=== PATIENT | female | born 1985 | race Caucasian/White ===

== ENCOUNTER 2023-05-16 09:07 | Emergency (ER) | payer MEDICAID, SELFPAY ==
[2023-05-16 09:16] VITALS: BP 139/87; PULSE 107; RESP 16; TEMP 36.5; O2SAT 96; BMI 25.8
--- NOTE | 2023-05-16 10:24 | ED.SKABFB1 ---
HPI - Skin/Abscess/Foreign Bdy General Chief complaint: Skin/Abscess/Foreign Body Stated complaint: LOCALIZED REDNESS/ BOIL Time Seen by Provider: 05/16/23 09:20 Source: patient Mode of arrival: walk-in History of Present Illness HPI narrative: painful area of redness to the left buttock. Uncertain if insect bite or an infection. Area is red, swollen and tender with a raised central protion but no pustule. no systemic symptoms such as fever or vomiting. Related Data Home Medications Medication Instructions Recorded Confirmed alprazolam 0.5 mg tablet 0.5 mg PO TID PRN anxiety 05/16/23 05/16/23 Previous Rx's Medication Instructions Recorded cephalexin 500 mg capsule 500 mg PO QID 7 days #28 caps 05/16/23 sulfamethoxazole 800 1 tab PO BID 7 days #14 tabs 05/16/23 mg-trimethoprim 160 mg tablet (Bactrim DS) Allergies Allergy/AdvReac Type Severity Reaction Status Date / Time metronidazole [From Flagyl] Allergy Unknown Verified 05/16/23 09:22 Exam Narrative Exam Narrative: Nurses notes and vital signs reviewed and patient is not hypoxic. afebrile General: Well-appearing and in no apparent distress. Skin: Warm, dry, no pallor noted. LEFT BUTTOCK - 3cm diameter erythema with warmth and tenderness. Central raised area of induration without pustule or fluctuance. No discharge on palpation. Head: Normocephalic, atraumatic. Eye: Pupils are equal, round and EOMI. No scleral icterus. Cardiovascular: normal peripheral perfusion. Respiratory: No accessory muscle use or respiratory distress. Musculoskeletal: normal ROM Neurological: A&O x4. No cranial nerve dysfunction observed. No truncal ataxia. Moves all extremities. Sensation intact. Psychiatric: Cooperative and interactive. Normal mood and affect. Constitutional Vital Signs, click to edit/add: Last Vital Signs Temp 97.7 F 05/16/23 09:16 Pulse 107 H 05/16/23 09:16 Resp 16 05/16/23 09:16 BP 139/87 H 05/16/23 09:16 Pulse Ox 96 05/16/23 09:16 O2 Del Method Room Air 05/16/23 09:16 Course Vital Signs Vital signs: Vital Signs Temperature 97.7 F 05/16/23 09:16 Pulse Rate 107 H 05/16/23 09:16 Respiratory Rate 16 05/16/23 09:16 Blood Pressure 139/87 H 05/16/23 09:16 Pulse Oximetry 96 05/16/23 09:16 Oxygen Delivery Method Room Air 05/16/23 09:16 Temperature 97.7 F 05/16/23 09:16 Pulse Rate 107 H 05/16/23 09:16 Respiratory Rate 16 05/16/23 09:16 Blood Pressure 139/87 H 05/16/23 09:16 Pulse Oximetry 96 05/16/23 09:16 Oxygen Delivery Method Room Air 05/16/23 09:16 MDM - Skin/Abscess/Foreign Bdy MDM Narrative Medical decision making narrative: no purulent fluid aspirated. Patient given keflex and bactrim in the ED and prescribed the same to take at home. She can see her PCP for follow up. Discussed warm compresses. Discharge Plan Discharge Chief Complaint: Skin/Abscess/Foreign Body Clinical Impression: Cellulitis Patient Disposition: Home, Self-Care Time of Disposition Decision: 10:23 Prescriptions / Home Meds: New cephalexin 500 mg capsule 500 mg PO QID 7 Days Qty: 28 0RF sulfamethoxazole-trimethoprim [Bactrim DS] 800-160 mg tablet 1 tab PO BID 7 Days Qty: 14 0RF No Action alprazolam 0.5 mg tablet 0.5 mg PO TID PRN (Reason: anxiety) Instructions: Cellulitis (ED) Stand Alone Forms: Portal Instructions Referrals: RAVEN MCDERMOTT [Primary Care Provider] - 1 week Procedures ED ID Incision & Drainage I&D Type: abcess Abscess Simple/Multiple: simple/single Site: other (left buttock) Anesthetic used: lidocaine 1% (with epi) Technique: needle aspiration Amount of fluid (mL): 0 (no fluid returned) Irrigation: No Packing used: none Complications: other (no complications, patient tolerated well)
[2023-05-16] MEDS: CEPHALEXIN 500 MG CAPSULE PO (11:09)
[2023-05-16] MEDS: SULFAMETHOXAZOLE/TRIMETHOPRIM 800-160 MG TABLET 1 TAB PO (11:09)
== END 2023-05-16 11:12 | disposition home or self-care (01) ==
PROVIDERS: Emergency Provider Emergency Medicine; PCP Family Medicine
DX: L03.317 Cellulitis of buttock (principal); Z79.899 Other long term (current) drug therapy; F41.9 Anxiety disorder, unspecified
CPT/HCPCS: 10060; 99283